=== PATIENT | female | born 1970 | race Hispanic/Latino ===

== ENCOUNTER 2018-04-19 10:02 | Emergency (ER) | payer OTHER ==
[2018-04-19 10:25] VITALS: PULSE 78; RESP 18
--- NOTE | 2018-04-19 10:45 | ED PDOC ---
Arrival/HPI - General Chief Complaint: Upper Extremity Problem/Injury Time Seen by Provider: 04/19/18 10:30 - History of Present Illness Narrative History of Present Illness (Text): 47 y/o F p/w R shoulder pain x 3 days. Pain is sharp, in the R anterior shoulder , severe, exacerbated by movement, nonradiating. Denies fever, chills. Patient spent the previous day before onset cleaning a large window. Past Medical History - Provider Review Nursing Documentation Reviewed: Yes - Infectious Disease Hx of Infectious Diseases: None - Reproductive Menopause: No - Cardiac Hx Cardiac Disorders: No - Neurological Hx Neurological Disorder: No - HEENT Hx HEENT Disorder: No - Endocrine/Metabolic Hx Endocrine Disorders: No - Psychiatric Hx Substance Use: No - Anesthesia Hx Anesthesia: No Family/Social History - Physician Review Nursing Documentation Reviewed: Yes Family/Social History: No Known Family HX Smoking Status: Unknown If Ever Smoked Hx Alcohol Use: No Hx Substance Use: No Allergies/Home Meds Allergies/Adverse Reactions: Allergies No Known Allergies Allergy (Verified 04/19/18 10:25) Review of Systems - Physician Review All systems were reviewed & negative as marked: Yes - Review of Systems Constitutional: absent: Fevers Respiratory: absent: SOB Cardiovascular: absent: Chest Pain Physical Exam - Physical Exam Narrative Physical Exam (Text): Constitutional: No acute distress. Head: Normocephalic. Atraumatic. Eyes: PERRL. ENT: Moist mucous membranes. Neck: Supple. Cardiovascular: Regular rate. Radial pulse 2+ bilaterally Chest: No tenderness. No clavicular tenderness Respiratory: Clear to auscultation bilaterally. Musculoskeletal: Tenderness at anterior shoulder without edema. Limited ROM with abduction or flexion secondary to pain. FROM and strength without pain of elbow, wrist, supination/pronation, hand strategic planning specialist. Skin: No rash. Neurologic: Alert, no focal deficit. As above. Vital Signs Temp Pulse Resp BP Pulse Ox 04/19/18 10:17 98 F 78 18 126/82 98 Medical Decision Making ED Course and Treatment: XR negative for fracture or dislocation. Toradol IM for pain. F/u Ortho, return to ED for worsening pain or fever. - RAD Interpretation Radiology Orders: 04/19/18 10:39 SHOULDER RIGHT [RAD] Stat - Medication Orders Current Medication Orders: Discontinued Medications Ketorolac Tromethamine (Toradol) 60 mg IM STAT STA Stop: 04/19/18 10:40 Last Admin: 04/19/18 10:54 Dose: Not Given Non-Admin Reason: Patient Refused Disposition/Present on Arrival - Present on Arrival Any Indicators Present on Arrival: No History of DVT/PE: No History of Uncontrolled Diabetes: No Urinary Catheter: No History of Decub. Ulcer: No History Surgical Site Infection Following: None - Disposition Have Diagnosis and Disposition been Completed?: Yes Diagnosis: Shoulder pain Disposition: HOME/ ROUTINE Disposition Time: 11:48 Patient Plan: Discharge Condition: STABLE Discharge Instructions (ExitCare): Shoulder Pain (DC), Bursitis Prescriptions: Ibuprofen [Motrin] 1 tab PO Q6 #30 tab Referrals: Roger Soares III, MD [Medical Doctor] - Follow up with primary [facility] at [facility] – [place] [Outside] - Follow up with primary Forms: [employer] (Gu[place]ian)
[2018-04-19 12:03] VITALS: BP 121/79; TEMP 98.2; O2SAT 100
--- NOTE | 2018-04-19 13:44 | RAD ---
PROCEDURE: Radiographs of the Right Shoulder HISTORY: shoulder pain, repetitive stress COMPARISON: No prior. FINDINGS: BONES: Normal. No fracture. JOINTS: Normal. Glenohumeral and acromioclavicular joints preserved. No osteoarthritis. SOFT TISSUES: Normal. OTHER FINDINGS: None. IMPRESSION: Normal radiographs of the right shoulder. Concordant results with the preliminary interpretation rendered by the emergency department physician procedure.
== END 2018-04-19 11:57 | disposition home or self-care (01) ==
LOC: ED 10:02
DX: M25.511 Pain in right shoulder (principal)